=== PATIENT | female | born 1940 | race Caucasian/White ===

== ENCOUNTER 2021-09-13 14:36 | Emergency (ER) | payer MEDICARE, OTHER ==
[~2021-09-13] VITALS: Ht 172.7 cm; Wt 85.2 kg
[~2021-09-13 14:36] MED LIST: AMLO1TAB46 PO; CEPH-357 PO; DABI150C PO; ESCI10TA45 PO; FOLI-43 PO; MECL25TA3 PO; NORCO10T PO; PREG100C24 PO; SOTA80TA73 PO
[2021-09-13 14:38] VITALS: BP 128/73
== END 2021-09-13 16:10 | disposition home or self-care (01) ==
LOC: ER 14:36
DX: S93.432A Sprain of tibiofibular ligament of left ankle, initial encounter (principal); R20.2 Paresthesia of skin; G62.9 Polyneuropathy, unspecified; I48.91 Unspecified atrial fibrillation; G89.29 Other chronic pain; Z90.710 Acquired absence of both cervix and uterus; Z95.0 Presence of cardiac pacemaker; Z79.2 Long term (current) use of antibiotics; Z79.899 Other long term (current) drug therapy; W19.XXXA Unspecified fall, initial encounter; Y93.89 Activity, other specified; Y92.89 Other specified places as the place of occurrence of the external cause; Y99.8 Other external cause status
CPT/HCPCS: 29515; 73610; 99283

== ENCOUNTER 2023-06-12 14:40 | Emergency (ER) | payer MEDICARE, OTHER ==
[~2023-06-12] VITALS: Ht 172.7 cm; Wt 84.1 kg
[2023-06-12 14:59] VITALS: BP 120/67; PULSE 74; RESP 18; TEMP 98; O2SAT 95
== END 2023-06-12 17:51 | disposition home or self-care (01) ==
LOC: ER 14:42
DX: S62.397A Other fracture of fifth metacarpal bone, left hand, initial encounter for closed fracture (principal); X50.9XXA Other and unspecified overexertion or strenuous movements or postures, initial encounter; Y93.89 Activity, other specified; Y92.89 Other specified places as the place of occurrence of the external cause; Y99.8 Other external cause status
CPT/HCPCS: 29515; 73610; 73630; 99284; A6446; A6449

== ENCOUNTER 2023-12-18 17:34 | Inpatient (IN) | payer MEDICARE, OTHER ==
[~2023-12-18] VITALS: Ht 172.7 cm; Wt 89.0 kg
[2023-12-18] MEDS: acetaminophen 1,000mg/100ml IV 100 ML IV ONE (18:39)
[2023-12-18] MEDS: normal saline 1000ML IV soln IV ONE (18:40)
[2023-12-18 18:57] LABS: ALBUMIN 3.2 G/DL (3.4-5.0); ANION GAP 9 (8-16); BLOOD UREA NITROGEN 16 MG/DL (7-18); BUN/CREATININE RATIO 11.6 (10.0-20.0); CALCIUM 8.8 MG/DL (8.5-10.1); CHLORIDE 106 MMOL/L (99-107); CREATININE 1.38 MG/DL (0.40-0.90); GLUCOSE 113 MG/DL (70-104); MAGNESIUM 1.4 MG/DL (1.5-2.4); POTASSIUM 3.7 MMOL/L (3.5-5.1); SODIUM 139 MMOL/L (135-145); TOTAL CARBON DIOXIDE 23.9 MMOL/L (24-32); eCRCL 31 ML/MIN; eGFR 36 ML/MIN
[2023-12-18 19:05] LABS: HEMATOCRIT 42.1 % (35.0-45.0); HEMOGLOBIN 13.9 g/dl (12.0-16.0); PLATELET COUNT 113 X10'3 (140-440)
[2023-12-18 19:07] LABS: BASOPHILS % (AUTO) 0.6 % (0-1); EOSINOPHILS % (AUTO) 0 % (0-6); LYMPHOCYTES # (AUTO) 0.3 X10'3 (1.1-4.8); LYMPHOCYTES % (AUTO) 5.4 % (21-51); MEAN CORPUSCULAR HEMOGLOBIN 27.2 PG (27.0-31.0); MEAN CORPUSCULAR HGB CONC 33.1 g/dL (33.0-36.5); MEAN CORPUSCULAR VOLUME 82.1 FL (78-98); MEAN PLATELET VOLUME 8.9 FL (7.4-10.4); MONOCYTES # (AUTO) 0.3 X10'3 (0-0.9); MONOCYTES % (AUTO) 5.5 % (2-12); NEUTROPHILS # (AUTO) 4.1 X10'3 (1.8-7.7); NEUTROPHILS % (AUTO) 88.5 % (42-75); RED BLOOD COUNT 5.13 X10'6 (4.20-5.60); RED CELL DISTRIBUTION WIDTH 16.6 % (11.5-14.5); WHITE BLOOD COUNT 4.7 X10'3 (4.5-11.0)
[2023-12-18] MEDS: CefTRIAXone/D5W-Rocephin 1gm 50 ML IV ONE (19:39)
[2023-12-18 20:25] LABS: BILIRUBIN,URINE NEGATIVE (Neg); CLARITY,URINE CLEAR (Clear); COLOR,URINE YELLOW (Yellow); GLUCOSE, URINE >=1000 mg/dl (Neg); KETONES,URINE NEGATIVE (Neg); LEUKOCYTE ESTERASE ,URINE NEGATIVE (Neg); NITRITES, URINE NEGATIVE (Neg); OCCULT BLOOD,URINE SMALL (Neg); PROTEIN,URINE TRACE mg/dl (Neg); UROBILINOGEN,URINE 0.2 E.U/dL (0.2-1.0)
[2023-12-18 20:32] LABS: UA COLLECTION TYPE CLN CATCH MIDSTREAM
[2023-12-18 20:35] LABS: BACTERIA,URINE FEW /HPF (Neg); SQUAMOUS EPITHELIAL CELL,UR FEW /LPF (FEW); WBC,URINE 0-4 /HPF (0-4)
[2023-12-18] MEDS ORDERED: magnesium 2GM in 50ml NS 50 ML IV PRN (23:40)
[2023-12-18] MEDS ORDERED: acetaminophen 325mg tablet PO PRN (23:40)
[2023-12-18] MEDS ORDERED: mag hydrox/Alum hydrox/simeth 30ml oral suspension PO PRN (23:40)
[2023-12-18] MEDS ORDERED: potassium Cl 40MEQ/1/2NS 520ml 520 ML IV PRN (23:40)
[2023-12-18] MEDS ORDERED: magnesium 4gm in 100ml NS 100 ML IV PRN (23:40)
[2023-12-18] MEDS ORDERED: potassium Cl 20 mEq SR tablet PO PRN (23:40)
[2023-12-18] MEDS ORDERED: ondansetron/PF 4mg/2ml inj IV PRN (23:40)
[2023-12-18] MEDS ORDERED: magnesium hydroxide 30ml (MOM) UD suspension PO PRN (23:40)
[2023-12-19] MEDS: normal saline 1000ml 1,000 ML IV SCH (00:06)
[2023-12-19 00:13] LABS: HEMOGLOBIN A1C 5.5 % (4.5-6.2)
[2023-12-19] MEDS: acetaminophen 325mg tablet PO PRN (01:29)
[2023-12-19 01:32] LABS: D-DIMER 1.23 MG/L FEU (0-0.50)
[2023-12-19 02:00] LABS: CREATINE KINASE 75 U/L (26-192); THYROID STIMULATING HORMONE 0.12 ulU/ml (0.34-4.50)
[2023-12-19 03:30] VITALS: PULSE 84; RESP 20; O2SAT 95
[2023-12-19] MEDS: K and/or MAG REPLACEMENT MC SCH (07:06)
[2023-12-19] MEDS: docusate sod 100mg capsule PO SCH (07:11)
[2023-12-19] MEDS: nicotine 21mg patch - 24 hr TD SCH (07:12)
[2023-12-19] MEDS: pantoprazole 40mg Tablet.DR PO SCH (07:12)
[2023-12-19 07:56] LABS: EOSINOPHILS % (AUTO) 0.1 % (0-6); HEMATOCRIT 39.4 % (35.0-45.0); HEMOGLOBIN 12.9 g/dl (12.0-16.0); LYMPHOCYTES # (AUTO) 0.2 X10'3 (1.1-4.8); MEAN CORPUSCULAR HEMOGLOBIN 27.1 PG (27.0-31.0); MEAN CORPUSCULAR HGB CONC 32.8 g/dL (33.0-36.5); MEAN CORPUSCULAR VOLUME 82.5 FL (78-98); MEAN PLATELET VOLUME 8.3 FL (7.4-10.4); MONOCYTES # (AUTO) 0.1 X10'3 (0-0.9); MONOCYTES % (AUTO) 2.3 % (2-12); NEUTROPHILS # (AUTO) 3.3 X10'3 (1.8-7.7); NEUTROPHILS % (AUTO) 90.6 % (42-75); PLATELET COUNT 105 X10'3 (140-440); RED BLOOD COUNT 4.78 X10'6 (4.20-5.60); RED CELL DISTRIBUTION WIDTH 17.2 % (11.5-14.5); WHITE BLOOD COUNT 3.7 X10'3 (4.5-11.0)
[2023-12-19 08:23] LABS: ALANINE AMINOTRANSFERASE 32 U/L (12-78); ALBUMIN 2.9 G/DL (3.4-5.0); ALBUMIN/GLOBULIN RATIO 0.9 (1.1-1.5); ALKALINE PHOSPHATASE 51 IU/L (46-116); ANION GAP 9 (8-16); ASPARTATE AMINO TRANSFERASE 46 U/L (10-37); BILIRUBIN,TOTAL 0.7 MG/DL (0.1-1.0); BLOOD UREA NITROGEN 18 MG/DL (7-18); BUN/CREATININE RATIO 13.6 (10.0-20.0); CALCIUM 8.6 MG/DL (8.5-10.1); CHLORIDE 109 MMOL/L (99-107); CHOL/HDL RATIO 1.7 (0.00-4.99); CHOLESTEROL 73 MG/DL (0-200); CREATININE 1.32 MG/DL (0.40-0.90); GLUCOSE 98 MG/DL (70-104); HDL CHOLESTEROL 44 MG/DL (35-60); LDL CHOLESTEROL 25 MG/DL (50-100); MAGNESIUM 1.4 MG/DL (1.5-2.4); PHOSPHORUS 3.5 MG/DL (2.3-4.5); POTASSIUM 3.6 MMOL/L (3.5-5.1); SODIUM 142 MMOL/L (135-145); TOTAL CARBON DIOXIDE 23.7 MMOL/L (24-32); TOTAL PROTEIN 6.2 G/DL (6.4-8.2); TRIGLYCERIDES 70 MG/DL (20-135); eCRCL 32 ML/MIN; eGFR 38 ML/MIN
[2023-12-19 08:34] LABS: TOTAL CELLS COUNTED 100
[2023-12-19 08:35] LABS: ANISOCYTOSIS 1+; PLATELET ESTIMATE DECREASED; POIKILOCYTOSIS FEW
[2023-12-19] MEDS ORDERED: meclizine 12.5mg tablet PO PRN (13:15)
[2023-12-19] MEDS: pregabalin 25mg capsule PO SCH (13:35)
[2023-12-19 18:00] VITALS: BP 161/73; PULSE 20; RESP 20; TEMP 99.8
[2023-12-19] MEDS ORDERED: CefTRIAXone/D5W-Rocephin 1gm 50 ML IV SCH (18:00)
[2023-12-19 20:00] VITALS: RESP 20; O2SAT 95
[2023-12-19] MEDS: dabigatran 150mg capsule PO SCH (20:00)
[2023-12-19] MEDS: HYDROcodone/acetaminophen 10/325mg tab PO PRN (20:10)
[2023-12-19] MEDS: ESCITALOPRAM 10 mg tablet 10 MG TABLET PO SCH (22:05)
[2023-12-19] MEDS: vancomycin/NS 1 GM ADD-VANTAGE 250 ML IV SCH (23:45)
[2023-12-20] MEDS: magnesium Cl slow-release 64mg tablet PO PRN (03:25)
[2023-12-20 07:20] LABS: BASOPHILS % (AUTO) 0.9 % (0-1); EOSINOPHILS % (AUTO) 0.9 % (0-6); HEMATOCRIT 35.4 % (35.0-45.0); HEMOGLOBIN 11.7 g/dl (12.0-16.0); LYMPHOCYTES # (AUTO) 0.5 X10'3 (1.1-4.8); LYMPHOCYTES % (AUTO) 10.9 % (21-51); MEAN CORPUSCULAR HEMOGLOBIN 27.1 PG (27.0-31.0); MEAN CORPUSCULAR HGB CONC 33.1 g/dL (33.0-36.5); MEAN CORPUSCULAR VOLUME 81.7 FL (78-98); MONOCYTES # (AUTO) 0.4 X10'3 (0-0.9); MONOCYTES % (AUTO) 7.7 % (2-12); NEUTROPHILS # (AUTO) 3.6 X10'3 (1.8-7.7); NEUTROPHILS % (AUTO) 79.6 % (42-75); PLATELET COUNT 96 X10'3 (140-440); RED BLOOD COUNT 4.34 X10'6 (4.20-5.60); RED CELL DISTRIBUTION WIDTH 16.7 % (11.5-14.5); WHITE BLOOD COUNT 4.5 X10'3 (4.5-11.0)
[2023-12-20 07:39] LABS: ALANINE AMINOTRANSFERASE 38 U/L (12-78); ALBUMIN 2.6 G/DL (3.4-5.0); ALBUMIN/GLOBULIN RATIO 0.8 (1.1-1.5); ALKALINE PHOSPHATASE 49 IU/L (46-116); ANION GAP 10 (8-16); ASPARTATE AMINO TRANSFERASE 39 U/L (10-37); BILIRUBIN,TOTAL 0.5 MG/DL (0.1-1.0); BLOOD UREA NITROGEN 16 MG/DL (7-18); BUN/CREATININE RATIO 15.8 (10.0-20.0); CALCIUM 8.7 MG/DL (8.5-10.1); CHLORIDE 108 MMOL/L (99-107); CREATININE 1.01 MG/DL (0.40-0.90); GLUCOSE 86 MG/DL (70-104); MAGNESIUM 1.3 MG/DL (1.5-2.4); PHOSPHORUS 2.5 MG/DL (2.3-4.5); POTASSIUM 3.2 MMOL/L (3.5-5.1); SODIUM 139 MMOL/L (135-145); TOTAL CARBON DIOXIDE 21.2 MMOL/L (24-32); TOTAL PROTEIN 5.7 G/DL (6.4-8.2); eCRCL 42 ML/MIN; eGFR 52 ML/MIN
[2023-12-20] MEDS: losartan 50mg tablet PO SCH (08:00)
[2023-12-20] MEDS ORDERED: VALSARTAN PO SCH (08:00)
[2023-12-20] MEDS ORDERED: AMLODIPINE PO SCH (08:00)
[2023-12-20] MEDS: amLODIPine 5mg tablet PO SCH (08:00)
[2023-12-20] MEDS: folic acid 1mg tablet PO SCH (08:18)
[2023-12-20] MEDS: CefTRIAXone 2gm/D5W 50ml BAG 50 ML IV SCH (08:19)
[2023-12-20] MEDS ORDERED: EMPA10TA PO (08:22)
[2023-12-20] MEDS ORDERED: SACU1TAB PO (08:22)
[2023-12-20 10:00] VITALS: BP 140/72; PULSE 86; RESP 16; TEMP 98.2; O2SAT 97
[2023-12-20 11:26] VITALS: PULSE 87; RESP 18; O2SAT 96
[2023-12-20] MEDS: potassium Cl 20 mEq SR tablet PO PRN (11:43)
[2023-12-20] MEDS: HYDROcodone/acetaminophen 5mg/325mg tablet PO PRN (11:48)
[2023-12-20 18:00] VITALS: BP 128/62; PULSE 74; RESP 14; TEMP 97.4; O2SAT 96
[2023-12-20 19:55] VITALS: RESP 14; O2SAT 96
[2023-12-20 21:08] VITALS: PULSE 86; RESP 18; O2SAT 94
[2023-12-20 22:00] VITALS: BP 166/75; PULSE 73; RESP 18; TEMP 97.6; O2SAT 96
[2023-12-21] VITALS (7 sets, daily range): BP systolic 134–144; BP diastolic 65–80; PULSE 80–99; RESP 13–18; TEMP 97.9–98.9; O2SAT 94–96
[2023-12-21 06:51] LABS: BASOPHILS # (AUTO) 0.1 X10'3 (0-0.2); BASOPHILS % (AUTO) 1.3 % (0-1); EOSINOPHILS # (AUTO) 0.1 X10'3 (0-0.9); EOSINOPHILS % (AUTO) 1.5 % (0-6); HEMATOCRIT 35.8 % (35.0-45.0); HEMOGLOBIN 11.9 g/dl (12.0-16.0); LYMPHOCYTES # (AUTO) 0.6 X10'3 (1.1-4.8); LYMPHOCYTES % (AUTO) 14.5 % (21-51); MEAN CORPUSCULAR HEMOGLOBIN 27.2 PG (27.0-31.0); MEAN CORPUSCULAR HGB CONC 33.2 g/dL (33.0-36.5); MEAN CORPUSCULAR VOLUME 81.8 FL (78-98); MEAN PLATELET VOLUME 9.1 FL (7.4-10.4); MONOCYTES # (AUTO) 0.4 X10'3 (0-0.9); MONOCYTES % (AUTO) 8.4 % (2-12); NEUTROPHILS # (AUTO) 3.2 X10'3 (1.8-7.7); NEUTROPHILS % (AUTO) 74.3 % (42-75); PLATELET COUNT 101 X10'3 (140-440); RED BLOOD COUNT 4.38 X10'6 (4.20-5.60); RED CELL DISTRIBUTION WIDTH 16.4 % (11.5-14.5); WHITE BLOOD COUNT 4.3 X10'3 (4.5-11.0)
[2023-12-21 07:11] LABS: ALANINE AMINOTRANSFERASE 32 U/L (12-78); ALBUMIN 2.5 G/DL (3.4-5.0); ALBUMIN/GLOBULIN RATIO 0.7 (1.1-1.5); ALKALINE PHOSPHATASE 49 IU/L (46-116); ANION GAP 11 (8-16); ASPARTATE AMINO TRANSFERASE 31 U/L (10-37); BILIRUBIN,TOTAL 0.4 MG/DL (0.1-1.0); BLOOD UREA NITROGEN 14 MG/DL (7-18); BUN/CREATININE RATIO 14.4 (10.0-20.0); CALCIUM 9.2 MG/DL (8.5-10.1); CHLORIDE 110 MMOL/L (99-107); CREATININE 0.97 MG/DL (0.40-0.90); GLUCOSE 85 MG/DL (70-104); MAGNESIUM 1.5 MG/DL (1.5-2.4); PHOSPHORUS 2.2 MG/DL (2.3-4.5); POTASSIUM 3.8 MMOL/L (3.5-5.1); SODIUM 141 MMOL/L (135-145); TOTAL CARBON DIOXIDE 20.5 MMOL/L (24-32); TOTAL PROTEIN 5.9 G/DL (6.4-8.2); eCRCL 44 ML/MIN; eGFR 55 ML/MIN
[2023-12-21] MEDS ORDERED: furosemide 20 MG/2 ML vial IV SCH (08:40)
[2023-12-21] MEDS: furosemide 20 MG/2 ML vial IV ONE (09:37)
[2023-12-21] MEDS ORDERED: iohexol 300mg/ml 100ml inj. ONE (10:50)
[2023-12-21] MEDS: ampicillin inj 2 GM in normal saline 100ml IV soln 100 ML IV SCH (15:12)
[2023-12-21] MEDS: CefTRIAXone 2gm/D5W 50ml BAG 50 ML IV SCH (20:09)
[2023-12-21] MEDS: sacubitril/valsartan 24mg-26mg tablet PO SCH (20:43)
[2023-12-21] MEDS: diatr meglu/diatrizoate 30ml oral sol.-(3 dose) bottle PO SCH (21:39)
[2023-12-22 06:00] VITALS: BP 130/60; PULSE 75; RESP 16; TEMP 97.7; O2SAT 94
[2023-12-22 07:15] LABS: BASOPHILS # (AUTO) 0.1 X10'3 (0-0.2); EOSINOPHILS # (AUTO) 0.1 X10'3 (0-0.9); EOSINOPHILS % (AUTO) 1.2 % (0-6); HEMATOCRIT 35.7 % (35.0-45.0); HEMOGLOBIN 11.9 g/dl (12.0-16.0); LYMPHOCYTES # (AUTO) 0.6 X10'3 (1.1-4.8); LYMPHOCYTES % (AUTO) 12.5 % (21-51); MEAN CORPUSCULAR HEMOGLOBIN 27.1 PG (27.0-31.0); MEAN CORPUSCULAR HGB CONC 33.3 g/dL (33.0-36.5); MEAN CORPUSCULAR VOLUME 81.5 FL (78-98); MEAN PLATELET VOLUME 8.8 FL (7.4-10.4); MONOCYTES # (AUTO) 0.6 X10'3 (0-0.9); MONOCYTES % (AUTO) 11.8 % (2-12); NEUTROPHILS # (AUTO) 3.6 X10'3 (1.8-7.7); NEUTROPHILS % (AUTO) 73.5 % (42-75); PLATELET COUNT 133 X10'3 (140-440); RED BLOOD COUNT 4.38 X10'6 (4.20-5.60); RED CELL DISTRIBUTION WIDTH 16.9 % (11.5-14.5); WHITE BLOOD COUNT 4.9 X10'3 (4.5-11.0)
[2023-12-22 07:30] LABS: ANION GAP 10 (8-16); BILIRUBIN,TOTAL 0.5 MG/DL (0.1-1.0); BLOOD UREA NITROGEN 17 MG/DL (7-18); BUN/CREATININE RATIO 17.2 (10.0-20.0); CALCIUM 9.2 MG/DL (8.5-10.1); CHLORIDE 106 MMOL/L (99-107); CREATININE 0.99 MG/DL (0.40-0.90); GLUCOSE 99 MG/DL (70-104); MAGNESIUM 1.4 MG/DL (1.5-2.4); PHOSPHORUS 2.9 MG/DL (2.3-4.5); POTASSIUM 3.3 MMOL/L (3.5-5.1); SODIUM 140 MMOL/L (135-145); TOTAL CARBON DIOXIDE 24.1 MMOL/L (24-32); eCRCL 43 ML/MIN; eGFR 53 ML/MIN
[2023-12-22 07:31] LABS: ALANINE AMINOTRANSFERASE 29 U/L (12-78); ALBUMIN 2.7 G/DL (3.4-5.0); ALBUMIN/GLOBULIN RATIO 0.7 (1.1-1.5); ALKALINE PHOSPHATASE 53 IU/L (46-116); ASPARTATE AMINO TRANSFERASE 20 U/L (10-37); TOTAL PROTEIN 6.4 G/DL (6.4-8.2)
[2023-12-22] MEDS ORDERED: TRAM50TA2 PO (07:40)
[2023-12-22] MEDS: furosemide 20 MG/2 ML vial IV SCH (08:42)
[2023-12-22] MEDS: EMPAGLIFLOZIN 10 MG TABLET PO SCH (08:47)
[2023-12-22] MEDS ORDERED: potassium Cl 40MEQ/1/2NS 520ml 520 ML IV PRN (10:55)
[2023-12-22] MEDS ORDERED: magnesium 2GM in 50ml NS 50 ML IV PRN (10:55)
[2023-12-22] MEDS ORDERED: magnesium 4gm in 100ml NS 100 ML IV PRN (10:55)
[2023-12-22] MEDS ORDERED: potassium Cl 20 mEq SR tablet PO PRN (10:55)
[2023-12-22 11:00] VITALS: BP 110/67; PULSE 88; RESP 16; TEMP 98.6; O2SAT 98
[2023-12-22] MEDS: traMADol 50MG tablet PO PRN ×2 (11:01→11:36)
[2023-12-22] MEDS: potassium Cl 20 mEq SR tablet PO PRN (11:34)
[2023-12-22] MEDS: magnesium Cl slow-release 64mg tablet PO PRN (11:35)
[2023-12-22 18:00] VITALS: BP 179/74; PULSE 92; RESP 16; TEMP 98.5; O2SAT 94
[2023-12-22 20:00] VITALS: RESP 16; O2SAT 94
[2023-12-22 20:31] VITALS: PULSE 90; RESP 18; O2SAT 95
[2023-12-22 22:00] VITALS: BP 134/75; PULSE 90; RESP 16; TEMP 97.5; O2SAT 97
[2023-12-22] MEDS ORDERED: VANCOMYCIN LEVEL IV ONE (22:30)
[2023-12-23] VITALS (7 sets, daily range): BP systolic 125–152; BP diastolic 67–84; PULSE 80–95; RESP 16–22; TEMP 96.2–97.6; O2SAT 92–97
[2023-12-23] MEDS: morphine 2 MG/ML inj. syringe IV PRN ×2 (01:44→18:51)
[2023-12-23 05:50] LABS: BASOPHILS % (AUTO) 0.7 % (0-1); EOSINOPHILS # (AUTO) 0.1 X10'3 (0-0.9); EOSINOPHILS % (AUTO) 0.9 % (0-6); HEMATOCRIT 36.1 % (35.0-45.0); LYMPHOCYTES # (AUTO) 0.7 X10'3 (1.1-4.8); MEAN CORPUSCULAR HEMOGLOBIN 27.1 PG (27.0-31.0); MEAN CORPUSCULAR HGB CONC 33.3 g/dL (33.0-36.5); MEAN CORPUSCULAR VOLUME 81.4 FL (78-98); MEAN PLATELET VOLUME 8.6 FL (7.4-10.4); MONOCYTES # (AUTO) 0.7 X10'3 (0-0.9); MONOCYTES % (AUTO) 11.8 % (2-12); NEUTROPHILS # (AUTO) 4.3 X10'3 (1.8-7.7); NEUTROPHILS % (AUTO) 74.6 % (42-75); PLATELET COUNT 143 X10'3 (140-440); RED BLOOD COUNT 4.44 X10'6 (4.20-5.60); RED CELL DISTRIBUTION WIDTH 16.2 % (11.5-14.5); WHITE BLOOD COUNT 5.8 X10'3 (4.5-11.0)
[2023-12-23 06:11] LABS: ALANINE AMINOTRANSFERASE 27 U/L (12-78); ALBUMIN 2.7 G/DL (3.4-5.0); ALBUMIN/GLOBULIN RATIO 0.7 (1.1-1.5); ALKALINE PHOSPHATASE 57 IU/L (46-116); ANION GAP 8 (8-16); ASPARTATE AMINO TRANSFERASE 14 U/L (10-37); BILIRUBIN,TOTAL 0.5 MG/DL (0.1-1.0); BLOOD UREA NITROGEN 16 MG/DL (7-18); BUN/CREATININE RATIO 13.7 (10.0-20.0); CALCIUM 9.4 MG/DL (8.5-10.1); CHLORIDE 103 MMOL/L (99-107); CREATININE 1.17 MG/DL (0.40-0.90); GLUCOSE 106 MG/DL (70-104); MAGNESIUM 1.6 MG/DL (1.5-2.4); PHOSPHORUS 3.1 MG/DL (2.3-4.5); POTASSIUM 3.6 MMOL/L (3.5-5.1); SODIUM 138 MMOL/L (135-145); TOTAL CARBON DIOXIDE 26.7 MMOL/L (24-32); TOTAL PROTEIN 6.8 G/DL (6.4-8.2); eCRCL 36 ML/MIN; eGFR 44 ML/MIN
[2023-12-23] MEDS: lactose-reduced food (Ensure Enlive) - 237ml bottle PO SCH (17:53)
[2023-12-24] VITALS (7 sets, daily range): BP systolic 120–160; BP diastolic 66–81; PULSE 76–102; RESP 14–18; TEMP 96.5–98.5; O2SAT 92–98
[2023-12-25 06:00] VITALS: BP 131/81; PULSE 77; RESP 15; TEMP 97.6; O2SAT 94
[2023-12-25 08:45] VITALS: RESP 18
[2023-12-25 09:53] VITALS: PULSE 86; RESP 18; O2SAT 96
[2023-12-25 10:00] VITALS: BP 116/57; PULSE 94; RESP 18; TEMP 97.4; O2SAT 92
[2023-12-25] MEDS: albuterol 2.5 MG/3 ML nebule NEB PRN (10:09)
[2023-12-25 10:10] VITALS: PULSE 75; RESP 18; O2SAT 95
[2023-12-25 10:19] VITALS: PULSE 89; RESP 18
[2023-12-25] MEDS ORDERED: PANT40TA54 PO (10:38)
[2023-12-25] MEDS ORDERED: DOCU100C40 PO (10:38)
[2023-12-25] MEDS ORDERED: FURO-150 PO (10:38)
[2023-12-25] MEDS ORDERED: LINE600T14 PO (12:20)
== END 2023-12-25 16:19 | disposition home or self-care (01) | DRG 871 ==
LOC: ER 17:35 → ED HOLD 23:50 → ORTHO 4S 12-19 17:54
PROVIDERS: ADMIT Family Medicine; ATTEND Family Medicine
PROC: BW211ZZ Computerized Tomography (CT Scan) of Abdomen and Pelvis using Low Osmolar Contrast (ICD-10-PCS; principal; 2023-12-21)
DX: A41.81 Sepsis due to Enterococcus (principal); G93.41 Metabolic encephalopathy; N17.0 Acute kidney failure with tubular necrosis; I13.0 Hypertensive heart and chronic kidney disease with heart failure and stage 1 through stage 4 chronic kidney disease, or unspecified chronic kidney disease; I50.32 Chronic diastolic (congestive) heart failure; Z20.822 Contact with and (suspected) exposure to COVID-19; E86.0 Dehydration; J44.9 Chronic obstructive pulmonary disease, unspecified; I48.91 Unspecified atrial fibrillation; F32.A Depression, unspecified; N39.41 Urge incontinence; I49.5 Sick sinus syndrome; G89.4 Chronic pain syndrome; I73.9 Peripheral vascular disease, unspecified; M54.9 Dorsalgia, unspecified; F17.210 Nicotine dependence, cigarettes, uncomplicated; E83.42 Hypomagnesemia; E88.09 Other disorders of plasma-protein metabolism, not elsewhere classified; D72.825 Bandemia; D69.6 Thrombocytopenia, unspecified; N18.30 Chronic kidney disease, stage 3 unspecified; I27.81 Cor pulmonale (chronic); Z90.710 Acquired absence of both cervix and uterus; Z95.0 Presence of cardiac pacemaker; Z98.1 Arthrodesis status
CPT/HCPCS: 36415; 70450; 71045; 72125; 74177; 80048; 80053; 80061; 81001; 82550; 83036; 83605; 83735; 83880; 84100; 84145; 84443; 85007; 85025; 85379; 85651; 87040; 87077; 87081; 87186; 87502; 87503; 87811; 93005; 93306; 94640; 94760; 96365; 96375; 97110; 97116; 97530; 97535; 99285; C1758; G0378; J0131; J0290; J0696; J1940; J2270; J3370; J7030; Q9963; Q9967

== ENCOUNTER 2025-03-02 10:13 | Emergency (ER) | payer MEDICARE, OTHER ==
[~2025-03-02] VITALS: Ht 172.7 cm; Wt 84.5 kg
[~2025-03-02 10:13] MED LIST changes: -AMLO1TAB46 PO; +ATOR20TA PO; +ATR0.5NEB NEB; +CELE-193 PO; -CEPH-357 PO; +DOCU100C40 PO; +EMPA10TA PO; -ESCI10TA45 PO; +FLUT1BLS12 INH; -FOLI-43 PO; +FORM20VI4; +FURO-150 PO; -MECL25TA3 PO; +METH1TAB32 PO; +METO-384 PO; +MONT-40 PO; -NORCO10T PO; +PANT40TA54 PO; +ROFL500T7 PO; +SACU1TAB PO; -SOTA80TA73 PO; +TRAM50TA2 PO
[2025-03-02 10:19] VITALS: TEMP 98.1
--- NOTE | 2025-03-02 10:26 | Physician Documentation ---
History of Present Illness ~ Stated Complaint: COUGH Time Seen by MD: 10:31 OK to notify your PCP?: Yes Primary Medical Doctor: Concepcion Source: patient Mode of Arrival: POV Exam Limitations: no limitations HPI Chief Complaint: Cough Caveat: None Independent Historians: History of present illness: 84-year-old female presents with a new productive cough for the past week. She does have a history of COPD and does home nebul izer treatments. She states that cough has been different and started off with yellow sputum that keeps getting darker in color feels like he does coming from deeper in her chest. She denies any fevers or other associated symptoms. She has a history of pneumonia earlier this summer. Review of systems: All systems were reviewed and are negative except for what is indicated in the history of present illness. Past Medical History: COPD Past Surgical History: Noncontributory Social History: Tobacco use, , no drug use Medications: Reviewed as documented Nursing Notes Allergies: Reviewed as documented in Nursing Notes Medication Reconciliation Allergies: Coded Allergies: No Known Allergies (Unverified , 03/02/25) Scheduled Atorvastatin Calcium (Lipitor), 1 TAB PO DAILY, (Reported) Azithromycin (Zithromax), 1 TAB PO UD Celecoxib* (Celebrex*), 100 MG PO DAILY, (Reported) Dabigatran Etexilate Mesylate (Pradaxa), 150 MG PO DAILY, (Reported) Docusate Sodium (Docusate Sodium), 100 MG PO BID Empagliflozin (Jardiance), 1 TAB PO DAILY, (Reported) Fluticasone Propion/Salmeterol (Fluticasone-Salmeterol 100-50), 1 PUFFS INH Q12H, (Reported) Methenamine Hippurate (Methenamine Hippurate), 1 TAB PO DAILY, (Reported) Metoprolol Succinate (Metoprolol Succinate), 1 TAB PO DAILY, (Reported) Montelukast Sodium (Montelukast Sodium), 1 TAB PO DAILY, (Reported) Pantoprazole Sodium (Pantoprazole Sodium), 40 MG PO BKF Prednisone* (Prednisone*), 1 TAB PO Q12H Pregabalin* (Lyrica*), 100 MG PO TID, (Reported) Roflumilast (Daliresp), 1 TAB PO DAILY, (Reported) Sacubitril/Valsartan (Entresto 24 mg-26 mg Tablet), 20 MG PO BID, (Reported) Scheduled PRN Furosemide (Lasix), 20 MG PO DAILY PRN for 30 Ipratropium Ceres Neb* (Atrovent Neb*), 1 VIAL NEB Q6H PRN for SOB or wheezing, (Reported) Tramadol Hcl (Tramadol Hcl), 1 TAB PO Q4H PRN for pain, (Reported) Miscellaneous Medications Formoterol Fumarate (Formoterol Fumarate), (Reported) Past Medical History Past Medical History: Atrial Fibrillation, Hypertension, COPD, Depression Past Surgical History: hysterectomy, pacemaker Patient History: Patient reports no known family medical history. Alcohol Use: None Drug Use: none Lives with: Spouse Lives In: Home Review of Systems All Other Systems at this time: Reviewed and Negative ROS Patient denies any other acute symptoms other than above. All other systems are negative Physical Exam Vital Signs: RN Vital Signs have been reviewed: Yes Pulse Oximetry Reflects: adequate oxygenation Physical Exam General: Alert, no apparent distress. HEENT: PERRL, EOMI, no injection, moist mucous membranes. Neck: Full range of motion. Respiratory: No respiratory distress. Bilateral crackles throughout and wheezes in the left lower base.. Chest: No accessory muscle use. Cardiovascular: Regular rate and rhythm, no murmurs. Gastrointestinal: Soft, nontender, nondistended. Bowels sounds present. Extremities: Normal range of motion, no deformity. Neurologic: Oriented x4. Psychiatric: Normal mood and affect. Skin: Normal color, warm and dry. No edema, no ecchymosis. Exam by Dr. Lerner: General Appearance: No distress HEENT: Normal OP, moist oral mucosa, PERRL, EOMI Neck: supple, normal ROM, trachea midline Pulmonary: No respiratory distress, breath sounds equal, inspiratory and expiratory coarse wheezing Cardiac: RRR, no murmur, rub or gallop, Extremities: normal ROM, no swelling, non-tender Skin: intact, dry, warm, no rashes Neuro: AAOx3, speech is clear, no focal motor weakness Psych: normal affect, good eye contact, no apparent hallucination, normal speech Progress Results/Orders Results/Orders Orders - STEFAN LERNER MD Svn Treatment (03/02/25 10:51) Completed Orders - STEFAN LERNER MD Prednisone Tablet (Prednisone Tablet) (03/02/25 10:55) Azithromycin Tablet (Zithromax Tablet) (03/02/25 10:55) Albuterol 2.5mg/3ml Nebule (Proventil 2. (03/02/25 10:55) Medications Received in ER Medications (Trade) Dose Ordered Sig/Venkata Route PRN Reason Start Time Stop Time Status Last Admin Dose Admin (predniSONE tablet) 80 mg ONCE ONCE PO 03/02/25 10:55 03/02/25 10:56 DC 03/02/25 11:17 80 MG (Zithromax tablet) 500 mg ONCE ONCE PO 03/02/25 10:55 03/02/25 10:56 DC 03/02/25 11:15 500 MG (Proventil 2.5 MG/3ML nebule) 5 mg ONCE ONCE NEB 03/02/25 10:55 03/02/25 10:56 DC 03/02/25 11:09 2.5 MG Vital Signs 03/02/25 03/02/25 03/02/25 03/02/25 10:19 10:52 11:13 11:15 Temp 98.1 Pulse 68 92 84 Resp 18 16 18 18 B/P (MAP) 120/67 Pulse Ox 96 95 100 O2 Delivery Room Air* Room Air* O2 Flow Rate 0 0 0 FiO2 21 21 03/02/25 11:21 Pulse 78 Resp 18 B/P (MAP) 124/72 Pulse Ox 98 Medical Decision Making Findings Differential diagnosis includes but is not limited to: Acute CHF, COPD exacerbation, pneumonia, pleural effusion, acute bronchitis Chest x-ray, single view, indication: Cough Independent interpretation: Lungs are clear, normal mediastinum, normal cardiac silhouette, pacemaker present. No acute cardiopulmonary process Emergency department course/medical decision-making: Patient presents with cough and some mild shortness a breath. Patient has no evidence of pneumonia, pleural effusion or congestive heart failure on the chest x-ray. Suspect acute COPD exacerbation. Patient given prednisone 80 mg p.o., Zithromax 500 mg p.o. and DuoNeb. Patient does not wish to be admitted. Patient does not meet admission criteria. Patient is stable. No evidence of a medical or surgical emergency. Patient is stable for discharge. Departure Time of Disposition: 10:56 Disposition: 01 HOME / SELF CARE / HOMELESS Impression: Primary Impression: Acute exacerbation of chronic obstructive airways disease Condition: Improved Discharge Instructions: Chronic Obstructive Pulmonary Disease Exacerbation, [id number] Prescriptions Azithromycin (Zithromax) 250 Mg Tablet 1 TAB PO UD for 5 Days, #6 TAB 2 the first day followed by 1 for days 2-5 Prov: STEFAN LERNER MD 03/02/25 Prednisone* (Prednisone*) 20 Mg Tablet 1 TAB PO Q12H for 5 Days, #10 TAB Prov: STEFAN LERNER MD 03/02/25 Education Educated: Patient, Family Educated regarding: diagnosis, treatment, need for follow up Additional Comment Medical Screen Exam This patient recieved a medical screening examination. After reviewing the individual's medical complaints with presenting symptoms and performing an appropriate physical examination, it was determined that no immediate life- threatening emergency medical condition is present. This individual is also not a women having contractions. Signature Scribe Signature: No scribe Attestation: No scribe MAXIMO JIMENEZ Mar 02, 2025 10:26 STEFAN LERNER MD Mar 02, 2025 10:57
--- NOTE | 2025-03-02 10:54 | RADIOLOGY REPORT ---
CHEST RADIOGRAPH Indication: productive cough Technique: Single frontal view of the chest was obtained COMPARISON: DI CHEST,SINGLE VIEW on DOS: 12/11/24, DI CHEST,SINGLE VIEW on DOS: 12/18/23 FINDINGS: Lines and Tubes: None. Left anterior chest wall cardiac pacing device. Lungs: Clear Pleura: No effusion. No pneumothorax. Cardiomediastinal contours: Cardiomegaly. Bones: Unremarkable IMPRESSION: 1. Cardiomegaly.
[2025-03-02] MEDS ORDERED: AZIT250T89 PO (10:57)
[2025-03-02] MEDS ORDERED: PRED20TA PO (10:57)
[2025-03-02] MEDS: albuterol 2.5 MG/3 ML nebule NEB ONE (11:09)
[2025-03-02 11:13] VITALS: PULSE 92; RESP 18; O2SAT 95
[2025-03-02 11:15] VITALS: PULSE 84; RESP 18; O2SAT 100
[2025-03-02 11:21] VITALS: BP 124/72; PULSE 78; RESP 18; O2SAT 98
== END 2025-03-02 11:22 | disposition home or self-care (01) ==
LOC: ER 10:13
DX: J44.1 Chronic obstructive pulmonary disease with (acute) exacerbation (principal); I10 Essential (primary) hypertension; I48.91 Unspecified atrial fibrillation; Z87.01 Personal history of pneumonia (recurrent); Z90.710 Acquired absence of both cervix and uterus
CPT/HCPCS: 71045; 94640; 99283; J7512; 94760